=== PATIENT | male | born 2000 | race African-American/Black ===

== ENCOUNTER 2021-01-06 09:23 | Emergency (ER) | payer OTHER ==
[2021-01-06 09:38] VITALS: TEMP 98.5; BMI 28.2
[2021-01-06 13:10] LABS: BASO % 0.6 % (0-2.0); EOS % 3.3 % (0-4.5); HEMATOCRIT 40.3 % (35.4-49); HEMOGLOBIN 13.7 GM/dL (11.7-16.9); LYMPH % 43.6 % (8-40); MCH 31.4 pg (25.7-33.7); MEAN CELL VOLUME 92.3 fl (80-96); MEAN PLT VOLUME 8.4 fl (7.5-11.1); MONO % 10.1 % (3.8-10.2); NEUT % 42.4 % (42.8-82.8); PLATELET COUNT 248 K/MM3 (134-434); RBC 4.37 M/mm3 (4.00-5.60); RDW 13.5 % (11.9-15.9); WHITE BLOOD COUNT 7.6 K/mm3 (4.0-10.0)
[2021-01-06 13:28] LABS: CHLORIDE 106 mmol/L (98-107); SODIUM 141 mmol/L (136-145)
[2021-01-06 13:30] LABS: ALBUMIN 4.5 g/dl (3.4-5.0); ANION GAP 5 MMOL/L (8-16); BLOOD UREA NITROGEN 13.5 mg/dL (7-18); CALCIUM 9.5 mg/dL (8.5-10.1); CO2 31 mmol/L (21-32); GLUCOSE,RANDOM 89 mg/dL (74-106)
[2021-01-06 13:33] LABS: SGOT/AST 21 U/L (15-37); SGPT/ALT 26 U/L (13-61)
[2021-01-06 13:35] LABS: BILIRUBIN,TOTAL 0.4 mg/dL (0.2-1)
[2021-01-06 13:36] LABS: ALK PHOS 90 U/L (45-117)
[2021-01-06 13:54] VITALS: BP 103/63; PULSE 58
== END 2021-01-06 14:05 | disposition home or self-care (01) ==
LOC: JER 09:23
DX: R53.1 Weakness (principal); F41.9 Anxiety disorder, unspecified
CPT/HCPCS: 36415; 80053; 84443; 84484; 85025; 93005; 93010; 93308; 99284-25